=== PATIENT | female | born 1985 | race Caucasian/White ===

== ENCOUNTER 2016-12-05 00:09 | Emergency (ER) | payer OTHER ==
[~2016-12-05] VITALS: Ht 152.4 cm; Wt 65.0 kg
[~2016-12-05 00:09] MED LIST: ADDE30TA PO; CIPR-9 PO; DIFL150T PO
[2016-12-05 00:36] VITALS: BP 155/90; PULSE 92; RESP 18; TEMP 97.4; O2SAT 98
[2016-12-05 01:27] LABS: AUTOMATED NEUTROPHIL # 5.3 TH/MM3 (1.8-7.7); BASOPHIL # 0.3 TH/MM3 (0-0.2); BASOPHIL % 2.3 % (0.0-2.0); EOSINOPHIL # 0.1 TH/MM3 (0-0.4); EOSINOPHIL % 0.7 % (0.0-4.0); HEMATOCRIT 36.8 % (35.0-46.0); LYMPH % 52.3 % (9.0-44.0); LYMPHOCYTE # 6.9 TH/MM3 (1.0-4.8); MEAN CELL VOLUME 86.1 FL (80.0-100.0); MEAN CORPUSCULAR HEMOGLOBIN 29.1 PG (27.0-34.0); MEAN CORPUSCULAR HGB CONC 33.9 % (32.0-36.0); MONO % 4.6 % (0.0-8.0); NEUT % 40.1 % (16.0-70.0); PLATELET COUNT 374 TH/MM3 (150-450); RED BLOOD COUNT 4.27 MIL/MM3 (4.00-5.30); RED CELL DISTRIBUTION WIDTH 15.1 % (11.6-17.2); WHITE BLOOD COUNT 13.1 TH/MM3 (4.0-11.0)
[2016-12-05 01:30] LABS: HEMO FLAGS AUTO DIFF
[2016-12-05 01:46] LABS: AMPHETAMINE, URINE NEG (NEG); BARBITURATES, URINE NEG (NEG); COCAINE, URINE NEG (NEG)
[2016-12-05 01:55] LABS: ACETAMINOPHEN LESS THAN 2.0 MCG/ML (10.0-30.0); ALT (GPT) 31 U/L (10-53); ANION GAP 10 MEQ/L (5-15); AST (GOT) 24 U/L (15-37); BICARBONATE 21.6 MEQ/L (21.0-32.0); BLOOD UREA NITROGEN 10 MG/DL (7-18); CHLORIDE 108 MEQ/L (98-107); GLOMERULAR FILTRATION RATE 103 ML/MIN (>89); POTASSIUM 3.3 MEQ/L (3.5-5.1); SODIUM (NA) 140 MEQ/L (136-145)
[2016-12-05 01:57] LABS: ALKALINE PHOSPHATASE 106 U/L (45-117); TOTAL BILIRUBIN ADULT 0.1 MG/DL (0.2-1.0)
[2016-12-05 02:22] LABS: METAMYELOCYTES 1 % (0-1); NEUTROPHIL # MANUAL DIFF 5.5 TH/MM3 (1.8-7.7); PLATELET ESTIMATE SMEAR NORMAL (NORMAL); PLATELET MORPHOLOGY NORMAL (NORMAL); POLYS (SEG NEUTROPHILS) 41 % (16-70); SCAN/DIFF FINAL DIFF MANUAL; WBC DIFF SAMPLE 100
[2016-12-05] MEDS ORDERED: ACETAMINOPHEN 325 MG TAB PO ONE (04:45)
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
[2016-12-05 07:52] VITALS: BP 123/75; PULSE 99; RESP 16; O2SAT 97
[2016-12-05 07:56] VITALS: RESP 16
[2016-12-05] MEDS ORDERED: IBUPROFEN 800 MG TAB PO ONE (08:00)
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
[2016-12-05] MEDS ORDERED: NICOTINE 21 MG/24 HR PATCH TD ONE (11:45)
[2016-12-05 12:27] VITALS: BP 136/92
[2016-12-16] MEDS ORDERED: CIPR0.3S LEFT EAR (13:16)
[2016-12-16] MEDS ORDERED: PRED50 PO (13:28)
[2017-01-20] MEDS ORDERED: VORT1TAB PO (11:22)
[2017-01-20] MEDS ORDERED: LISD70 PO (11:22)
[2017-01-20] MEDS ORDERED: CYCL1TAB29 PO (11:46)
[2017-01-20] MEDS ORDERED: PRED20 PO (11:46)
[2017-04-06] MEDS ORDERED: ADDE30TA PO (15:44)
[2017-04-06] MEDS ORDERED: ETHI1TAB3 PO (15:44)
[2017-04-06] MEDS ORDERED: PRED20 PO (15:48)
[2017-04-06] MEDS ORDERED: CYCL7.5T33 PO (15:49)
[2017-04-06] MEDS ORDERED: NEBUKIT5 (15:50)
[2017-04-06] MEDS ORDERED: IPRASOL INH (15:50)
[2017-04-11] MEDS ORDERED: NEBUKIT5 (11:33)
[2017-04-12] MEDS ORDERED: NEBULIZER1 MI1 (09:43)
== END 2016-12-05 12:45 | disposition home or self-care (01) ==
LOC: NEPA 00:09
DX: F10.14 Alcohol abuse with alcohol-induced mood disorder (principal); Y90.6 Blood alcohol level of 120-199 mg/100 ml
CPT/HCPCS: 80053; 80307; 80320; 80329; 84703; 85007; 85027; 99284; G0480

== ENCOUNTER 2018-09-19 05:25 | Inpatient (IN) ==
[2018-09-19] MEDS ORDERED: ceFAZolin 2 GM Premix Inj 2 GM/50 ML PIGGYBACK IV.SIG PRN (06:24)
[2018-09-19 06:25] LABS: Baso # (Auto) 0.1 th/mm3 (0.0-0.2); Baso % (Auto) 0.4 % (0.0-2.0); Eos # (Auto) 0.1 th/mm3 (0.0-0.4); Eos % (Auto) 0.5 % (0.0-4.0); Hematocrit 33.4 % (35.0-46.0); Hemoglobin 11.5 gm/dL (11.6-15.3); Lymph # (Auto) 3.7 th/mm3 (1.0-4.8); Lymph % (Auto) 23.4 % (9.0-44.0); Mean Corpuscular HGB Conc 34.4 % (32.0-36.0); Mean Corpuscular Hemoglobin 30.4 pg (27.0-34.0); Mean Corpuscular Volume 88.5 fL (80.0-100.0); Mean Platelet Volume 8.6 fL (7.0-11.0); Mono # (Auto) 0.7 th/mm3 (0.0-0.9); Mono % (Auto) 4.8 % (0.0-8.0); Neut # (Auto) 11.2 th/mm3 (1.8-7.7); Neut % (Auto) 70.9 % (16.0-70.0); Platelet Count 264 th/mm3 (150-450); Red Blood Count 3.78 mil/mm3 (4.00-5.30); Red Cell Distribution Width 13.5 % (11.6-17.2); White Blood Count 15.8 th/mm3 (4.0-11.0)
[2018-09-19] MEDS ORDERED: Citric Acid/Sodium Citrate Liq 30 ML UDC PO SCH (06:30)
--- NOTE | 2018-09-19 06:56 | P.HPOB ---
History of Present Illness Service: obstetrics Primary Care Physician: No Primary Care Physician Chief Complaint: scheduled repeat History of Present Illness: 32 yo with EDC 09/26/18 by LMP c/w 7 wk sono, admit for scheduled repeat due to hx of x 2. Pt declines tubal at time of . Aware of risks of repetitive surgery including risk of bleeding, hemorrhage, need for transfusion and possibility of hysterectomy. Smoker. Has hx of ADHD, was on adderall until + test around 5 weeks. Today pt c/ o mild cramping, no regular contractions, no LOF or VB. Endorses good FM. Pain 2/10 in pelvis, pressure. Female . Weeks Gestation:: 39 Para: 2 : 3 Last menstrual period: 02/10/18 Total # of Miscarriage(s): 0 Total # of Abortions (Spontaneous & Elective): 0 - Inpatient Certification I certify that the inpatient services were ordered in accordance with Medicare regulations governing the order. This includes certification that hospital inpatient services are reasonable and necessary and in the case of services not specified as inpatient-only under 42 CFR 419.22(n), that they are appropriately provided as inpatient services in accordance to with the 2-midnight benchmark under 43 CFR 412.3(e) Estimated Total Length of Stay (Days): 4 Plans for Post Hospital Care: Home Review of Systems All other systems reviewed negative except as stated in HPI PMFSH - History History Provided By: Patient - Medical History Medical History: Medical History (Last Updated 09/19/18 @ 06:52 by Tiffanie Beatty MD) History of delivery, currently delivery delivered - Surgical History Surgical History: Surgical History (Last Updated 09/19/18 @ 06:52 by Tiffanie Beatty MD) History of appendectomy - Family History Family History: Family History (Last Updated 09/19/18 @ 06:53 by Tiffanie Beatty MD) Other No significant family history - Social History I have reviewed the patient's Social History: Yes - Tobacco History Second Hand Smoke Exposure: Yes Tobacco Use In Past 30 Days: Yes Smoking Status: Current every day smoker Tobacco Type: Cigarettes Packs Per Day: 1 - Alcohol History How Often Do You Have a Drink Containing Alcohol: Never - Substance Use History Substance History: No History of Abuse - Travel History History of Recent Travel: No Recent Travel in the [place] Within the Last 8 Weeks: No Recent Travel Out of the Country Within the Last 8 Weeks: No - Immunization History Immunizations: Tdap 08/21/18, Flu shot 08/15/18 Tetanus Immunization: <5 Years Tetanus Immunization Year if Known: 2017 Hx Influenza Vaccine This Season: Yes Medications and Allergies Active Medications: Active Medications Citric Acid/Sodium Citrate (Sodium Citrate/Citric Acid Liq) 30 ml PO DIRECTOR OF VOLUNTEER SERVICES [facility] Stop: 09/23/18 06:29 Cefazolin Sodium/Dextrose (Ancef 2 Gm Premix Inj) 2 gm in 50 mls @ 100 mls/hr IV.SIG DIRECTOR OF VOLUNTEER SERVICES PRN PRN Reason: BEGIN WHEN TRANSPORTING TO OR Stop: 09/23/18 06:23 Lactated Ringer's (Lr 1000 Ml Inj) 1,000 mls @ 2,000 mls/hr IV.SIG .Q30M ONE Stop: 09/19/18 06:53 Last Admin: 09/19/18 06:37 Dose: 2,000 mls/hr Lactated Ringer's (Lr 1000 Ml Inj) 1,000 mls @ 150 mls/hr IV.CONT .Q6H40M [facility] Allergies Allergy/AdvReac Type Severity Reaction Status Date / Time Sulfa (Sulfonamide Allergy Unknown unknown Verified 09/17/18 10:59 Antibiotics) Home Medications Medication Instructions Recorded Confirmed Type PNV #[id number] 1 tab PO DAILY 04/28/18 09/19/18 History nicotine 1 patch TRANSDERMAL DAILY 04/28/18 09/19/18 History Exam Vital signs: Vital Signs 09/19/18 05:53 Temperature 97.8 F Pulse Rate 124 H Respiratory Rate 18 Blood Pressure 112/77 Intake & Output 09/18/18 09/18/18 09/19/18 06:59 18:59 06:59 Weight 81 kg Other: Weight On Admission 81 kg - Constitutional mild distress - Routine HEENT Exam Head: Present: normocephalic, atraumatic Eye: Present: EOMI ENT: Present: mucous membranes moist - Routine Neck Exam Present: supple, full ROM - Routine Chest/Breast/Axilla Exam Chest wall: Absent: tenderness, mass - Routine Respiratory Exam Present: CTA bilaterally. Absent: accessory muscle use - Routine Cardiovascular Exam Present: RRR. Absent: bradycardia - Routine Abdominal Exam Absent: tenderness, rebound Comments: gravid c/w dates - Routine Extremities Exam Absent: cyanosis, clubbing - Routine Skin Exam Present: intact. Absent: cyanosis - Routine Neurological Exam Present: alert, oriented X3 Results - Labs CBC & Chem 7: 09/19/18 06:00 Labs: Laboratory Results - last 24 hr 09/19/18 06:00 WBC 15.8 H RBC 3.78 L Hgb 11.5 L Hct 33.4 L MCV 88.5 MCH 30.4 MCHC 34.4 RDW 13.5 Plt Count 264 MPV 8.6 Neut % (Auto) 70.9 H Lymph % (Auto) 23.4 [place] % (Auto) 4.8 Eos % (Auto) 0.5 Baso % (Auto) 0.4 Neut # (Auto) 11.2 H Lymph # (Auto) 3.7 [place] # (Auto) 0.7 Eos # (Auto) 0.1 Baso # (Auto) 0.1 WBC Differential . Differential Comment Auto diff final Group B Strep: Positive Caprini VTE Risk Assessment Caprini VTE Risk Assessment: No/Low Risk (score <= 1) VTE Pharmacological Exception Reason: Epidural catheter Caprini Risk Assessment Model: Point Value = 1 Point Value = 2 Point Value = 3 Point Value = 5 Age 41-60 Minor surgery BMI > 25 kg/m2 Swollen legs Varicose veins or History of unexplained or recurrent spontaneous Oral contraceptives or hormone replacement Sepsis (< 1 month) Serious lung disease, including pneumonia (< 1 month) Abnormal pulmonary function Acute myocardial infarction Congestive heart failure (< 1 month) History of inflammatory bowel disease Medical patient at bed rest Age 61-74 Arthroscopic surgery Major open surgery (> 45 min) Laparoscopic surgery (> 45 min) Malignancy Confined to bed (> 72 hours) Immobilizing plaster cast Central venous access Age >= 75 History of VTE Family history of VTE Factor V Leiden Prothrombin [id number] Lupus anticoagulant Anticardiolipin antibodies Elevated serum homocysteine Heparin-induced thrombocytopenia Other congenital or acquired thrombophilia Stroke (< 1 month) Elective arthroplasty Hip, pelvis, or leg fracture Acute spinal cord injury (< 1 month) Prophylaxis Regimen: Total Risk Factor Score Risk Level Prophylaxis Regimen 0-1 Low Early ambulation 2 Moderate Order ONE of the following: *Sequential Compression Device (SCD) *Heparin 5000 units SQ BID 3-4 Higher Order ONE of the following medications: *Heparin 5000 units SQ TID *Enoxaparin/Lovenox 40 mg SQ daily (WT < 150 kg, CrCl > 30 mL/min) *Enoxaparin/Lovenox 30 mg SQ daily (WT < 150 kg, CrCl > 10-29 mL/min) *Enoxaparin/Lovenox 30 mg SQ BID (WT < 150 kg, CrCl > 30 mL/min) AND/OR *Sequential Compression Device (SCD) 5 or more Highest Order ONE of the following medications: *Heparin 5000 units SQ TID (Preferred with Epidurals) *Enoxaparin/Lovenox 40 mg SQ daily (WT < 150 kg, CrCl > 30 mL/min) *Enoxaparin/Lovenox 30 mg SQ daily (WT < 150 kg, CrCl > 10-29 mL/min) *Enoxaparin/Lovenox 30 mg SQ BID (WT < 150 kg, CrCl > 30 mL/min) AND *Sequential Compression Device (SCD) Assessment and Plan - Diagnosis (1) 39 weeks gestation of Code(s): Z3A.39 - 39 weeks gestation of Status: Acute (2) Previous section Code(s): Z98.891 - History of uterine scar from previous surgery Status: Chronic - Plan 32 yo with EDC 09/26/18 presents for scheduled repeat due to hx of x 2. 1) hx of x 2, for repeat: r/b/a of procedure d/w pt, AQA, consents signed 2) GBS +: aware 3) tobacco use: aware, encouraged cessation throughout , pt not motivated 4) family planning: pt declined option of tubal at time of 5) abnl 1h GTT - unable to tolerate 3h, tested BS 4x/day x 2 weeks and all wnl; not gestational diabetic 6) status: female, vertex, EFW >8# Discharge Plannin-3d PP
[2018-09-19] MEDS ORDERED: Morphine Sulfate PF Inj 5 MG/10 ML Ampul ONE (07:14)
[2018-09-19] MEDS ORDERED: Naloxone Inj 0.4 MG/ML Vial IV.PUSH PRN (07:25)
[2018-09-19 07:51] LABS: Bacteria,Urine Occasional /hpf; Bilirubin,Urine Negative (Negative); Clarity,Urine Clear (Clear); Color,Urine Straw (Yellw/Straw); Glucose,Urine (UA) Negative (Negative); Leukocyte Esterase,Urine Trace (Negative); Mucus,Urine Few /lpf (Occasional); Nitrite,Urine Negative (Negative); Specific Gravity,Urine 1.008 (1.002-1.035); Squamous Epithelial Cell,Urine 1 /hpf (0-5)
[2018-09-19 07:52] LABS: Amphetamine Screen,Urine Neg (Neg); Barbiturate Screen,Urine Neg (Neg); Cannabinoid Screen,Urine Neg (Neg); Cocaine Screen,Urine Neg (Neg)
[2018-09-19 07:54] LABS: Opiate Screen,Urine Neg (Neg)
[2018-09-19] MEDS ORDERED: Oxytocin 30 Units/500ml Premix 30 UNITS/500 ML BAG IV.SIG ONE (08:19)
[2018-09-19] MEDS ORDERED: Ketorolac Inj 30 MG/ML (IVP) Vial IM PRN (08:19)
[2018-09-19] MEDS ORDERED: Senna/Docusate Sodium 8.6/50 MG Tablet PO PRN (08:19)
[2018-09-19] MEDS ORDERED: Simethicone 80 MG Chew Tablet PO PRN (08:19)
[2018-09-19] MEDS ORDERED: Acetaminophen 325 MG Tablet PO PRN (08:19)
--- NOTE | 2018-09-19 08:24 | P.OBDELI ---
Procedure Note - Pre Op Diagnosis (1) Previous section - Post Op Diagnosis (1) 39 weeks gestation of Performed by: Tiffanie Beatty MD Procedure: Repeat Low Transverse Section Indication for Delivery: Desired elective repeat (history of x 2) Informed Consent Obtained: For anesthesia, For procedure Confirmed Correct: Patient, Procedure, Site, Time-out taken Anesthesia: Spinal Medication Prior to Procedure: As documented in eMAR Monitoring During Procedure: Blood pressure monitoring, buhr dresser, Pulse oximetry Urinary Catheter: Inserted using sterile technique, To dependent drainage, ml urine output (350) Sterile Preparation: Duraprep, In usual fashion, With drapes to expose affected area Position: Supine with wedge to right side - Operative Features Skin Incision: Pfannenstiel Uterine Incision: Low transverse w/knife / scissors Membranes Ruptured: Artificially, Amount of liquid (moderate), Appearance of fluid (clear) Presentation: Occiput anterior, Vertex Status of : Viable, Cord blood, Nursery present Placenta Delivered: Intact Medications: Antibiotics (ancef 2g IV) Estimated blood loss (mL): 700 Procedure Tolerated: Well Maternal Condition: Stable Baby Condition: Stable - Infant: Female Female A Infant Delivery Date: 09/19/18 Infant Delivery Time: 07:50 Weight: 2.778 kg Delivery of Infant: Uneventful score (1 min): 8 score (5 min): 9
[2018-09-19] MEDS ORDERED: Oxytocin 30 Units/500ml Premix 30 UNITS/500 ML BAG ONE (09:13)
--- NOTE | 2018-09-19 10:21 | MP ---
cc: Tiffanie Beatty MD DATE OF OPERATION: 09/19/2018 PREOPERATIVE DIAGNOSES: 1. Delgado intrauterine at 39 weeks. 2. History of x2, for scheduled repeat. POSTOPERATIVE DIAGNOSES: 1. Delgado intrauterine at 39 weeks. 2. History of x2, status post scheduled repeat. 3. Postoperative day #0. INDICATIONS: Halle Burciaga is a 32-year-old, 3, now para 3-0-0-3, who was seen and evaluated in the office for care, and had history of delivery x2. She desired repeat at term, and declined option of tubal ligation. She was scheduled for repeat at 39 weeks. SURGEON: Tiffanie Beatty MD ANESTHESIA: Spinal. PROCEDURE PERFORMED: Repeat low transverse delivery with scar revision. ESTIMATED BLOOD LOSS: 700 mL. INTRAVENOUS FLUID REPLACEMENT: 1400 mL URINE OUTPUT: 350 mL of clear urine draining in the Navarro bag at the end of the procedure. PROPHYLAXIS: Ancef 2 grams IV was given preoperatively. SCDs were on and functioning throughout the entire case. COMPLICATIONS: None. COUNTS: The sponge, lap, instrument, and needle counts were correct x2 at the conclusion of the procedure. SPECIMEN: None. INTRAOPERATIVE FINDINGS: A vigorous viable female infant weighing 6 pounds 2 ounces. Amniotic fluid was clear. Uterus with minimal scar tissue and normal-appearing bilateral fallopian tubes and ovaries. PROCEDURE IN DETAIL: After reviewing the informed consent, the patient was taken to the operating suite, where timeout was performed to identify the patient, planned procedure, any known allergies to drugs or drug products. The patient was then placed sitting up on the exam table, and spinal anesthesia was administered without difficulty, and found to be adequate. She was then laid in dorsal supine position with a bump under her right side, and abdomen and peritoneum were prepped and draped in normal sterile fashion. Navarro catheter was placed using sterile technique. Attention was turned abdominally. The prior 2 scars from previous 2 Pfannenstiel incisions were excised using scalpel. The incision was then carried down to the underlying layer of fascia with the Bovie. The fascia was incised in the midline, and the incision was extended laterally with sharp dissection using Kelly scissors. Superior and inferior aspects of the fascial incision was elevated with Juan Antonio clamps, and rectus muscles were dissected off sharply with the scalpel and Kelly scissors. Hemostat was used to separate the rectus muscles in the midline, and using hemostats and Metzenbaum, the peritoneum was entered sharply. The incision was extended with good visualization of intra-abdominal contents. A bladder flap was made using standard technique with Metzenbaums and pickups. The bladder blade was then replaced. A low transverse uterine incision was made with a scalpel. Incision was extended bluntly. The amniotic sac was ruptured with clear fluid noted. 's head was grasped and elevated out of the incision. Using gentle fundal pressure, the rest of the 's body readily delivered. was immediately crying upon delivery. Delayed cord clamping of 45 seconds was performed. Nursery staff was present, and the was handed off to the waiting nursery staff after cord was doubly clamped and cut. Cord blood sample was taken. The placenta was delivered spontaneous with gentle cord traction and fundal massage. Uterus was exteriorized, cleared of all clots and debris with sterile moist lap sponges. The uterine incision was repaired in a double-layer, first in a running locked layer with #1 chromic, then in an imbricating layer. Irrigation with suction was performed in the posterior cul-de-sac. Uterus was then returned to the abdomen. Additional irrigation with suction was performed. A layer of Interceed was placed over the repaired hysterotomy. Excellent hemostasis was noted. Peritoneum was reapproximated with 2-0 chromic in a running fashion. The fascia was reapproximated with #1 Vicryl in a running locked fashion. The subcutaneous tissue was irrigated copiously with warm sterile saline, and excellent hemostasis was ensured with the Bovie. A series of interrupted sutures using 2-0 chromic was used to close the subcutaneous space. Skin was closed in a subcuticular fashion with 3-0 Monocryl. The skin was cleaned and dried. Steri-Strips were placed, as was a standard dressing. The procedure concluded at this point. The patient tolerated the procedure well without complication. DISPOSITION: Estimated length of stay: 2-3 postoperative days. is nursery status. MD RUBEN Aguilar/michelle , 08:43 AM , 08:50 AM LUIZ
[2018-09-19] MEDS ORDERED: Oxytocin 30 Units/500ml Premix 30 UNITS/500 ML BAG IV.SIG PRN (13:19)
[2018-09-19] MEDS ORDERED: Zolpidem Tartrate 5 MG Tablet PO PRN (21:00)
[2018-09-20 05:55] LABS: Baso # (Auto) 0.1 th/mm3 (0.0-0.2); Baso % (Auto) 0.4 % (0.0-2.0); Eos # (Auto) 0.1 th/mm3 (0.0-0.4); Eos % (Auto) 0.5 % (0.0-4.0); Hematocrit 33.5 % (35.0-46.0); Hemoglobin 11.4 gm/dL (11.6-15.3); Lymph # (Auto) 4.3 th/mm3 (1.0-4.8); Lymph % (Auto) 23.2 % (9.0-44.0); Mean Corpuscular HGB Conc 34.1 % (32.0-36.0); Mean Corpuscular Volume 88.1 fL (80.0-100.0); Mean Platelet Volume 8.8 fL (7.0-11.0); Mono # (Auto) 1.2 th/mm3 (0.0-0.9); Mono % (Auto) 6.4 % (0.0-8.0); Neut # (Auto) 12.9 th/mm3 (1.8-7.7); Neut % (Auto) 69.5 % (16.0-70.0); Platelet Count 290 th/mm3 (150-450); Red Cell Distribution Width 13.9 % (11.6-17.2); White Blood Count 18.6 th/mm3 (4.0-11.0)
--- NOTE | 2018-09-20 11:44 | P.PNOB ---
Subjective Post op day: 1 Interval history: POD#1, s/p RCD; Patient is struggling with smoking restriction,is using patch with modest relief. anticipate discharge for tomorrow POD#2 Objective Vital Signs/I&O: Vital Signs 09/19/18 16:00 09/19/18 20:00 09/20/18 00:00 Temperature 97.4 F L 98.6 F 98.3 F Pulse Rate 88 85 62 Respiratory Rate 16 18 18 Blood Pressure 111/73 110/79 119/75 09/20/18 04:00 09/20/18 08:00 Temperature 98.3 F 97.1 F L Pulse Rate 73 89 Respiratory Rate 18 18 Blood Pressure 106/79 103/69 Result Diagrams: 09/20/18 05:07 Objective Remarks: GENERAL: Well-nourished, well-developed patient. CARDIOVASCULAR: Regular rate and rhythm without murmurs, gallops, or rubs. RESPIRATORY: Breath sounds equal bilaterally. No accessory muscle use. ABDOMEN/GI: Abdomen soft, non-tender, bowel sounds present. Incision: Clean, dry and intact. Fundus: Firm, non-tender at umbilicus. GENITOURINARY: Light to moderate bleeding. EXTREMITIES: No cyanosis or edema, non-tender, without signs of DVT. Medications and IVs: Active Medications Acetaminophen (Tylenol) 650 mg PO Q6H PRN PRN Reason: PAIN SCALE 1 TO 2 Diphtheria/Pertussis/Tetanus Vacc (Boostrix Vaccine Inj) 0.5 ml IM .ONCE ONE Stop: 09/20/18 16:01 Oxytocin (Pitocin 30 Units/Ns 500 Ml Premix) 30 units in 500 mls @ 100 mls/hr IV.SIG UNSCH PRN PRN Reason: Heavy bleeding Ibuprofen (Motrin) 800 mg PO Q8H PRN PRN Reason: cramping Last Admin: 09/20/18 10:15 Dose: 800 mg Ketorolac Tromethamine (Toradol Inj) 30 mg IM Q6H PRN PRN Reason: SEE LABEL COMMENTS Measles/Mumps/Rubella Vaccine Live (M-M-R Ii Vaccine Inj) 0.5 ml SQ .ONCE ONE Stop: 09/20/18 16:01 Nicotine (Habitrol 21 Mg Patch.24 Hr) 1 patch T-DERMAL DAILY ADRIA Last Admin: 09/20/18 08:18 Dose: 1 patch Ondansetron HCl (Zofran Inj) 4 mg IV.PUSH Q6H PRN PRN Reason: NAUSEA OR VOMITING Oxycodone/Acetaminophen (Percocet 5/325 Mg) 1 tab PO Q4H PRN PRN Reason: PAIN SCALE 3 TO 5 Last Admin: 09/20/18 04:47 Dose: 1 tab Oxycodone/Acetaminophen (Percocet 5/325 Mg) 2 tab PO Q4H PRN PRN Reason: PAIN SCALE 6 TO 10 Last Admin: 09/20/18 10:15 Dose: 2 tab Patch Removal (Remove Old Patch) 1 each T-DERMAL DAILY ADRIA Last Admin: 09/19/18 10:55 Dose: Not Given Senna/Docusate Sodium (Gayle-Colace) 2 tab PO Q12H PRN PRN Reason: CONSTIPATION Last Admin: 09/19/18 21:18 Dose: 2 tab Simethicone (Mylicon Chew) 80 mg PO QID PRN PRN Reason: FLATULENCE Last Admin: 09/20/18 05:03 Dose: 80 mg Sodium Chloride (Ns Flush) 2 ml IV.FLUSH BID ADRIA Last Admin: 09/20/18 00:21 Dose: 2 ml Sodium Chloride (Ns Flush) 2 ml IV.FLUSH PRN PRN PRN Reason: FLUSH AFTER USING IV ACCESS Zolpidem Tartrate (Ambien) 5 mg PO HS PRN PRN Reason: INSOMNIA Last Admin: 09/19/18 22:14 Dose: 5 mg Assessment and Plan - Diagnosis (1) 39 weeks gestation of Code(s): Z3A.39 - 39 weeks gestation of Status: Acute (2) Previous section Code(s): Z98.891 - History of uterine scar from previous surgery Status: Chronic - Plan 32 yo with EDC 09/26/18 presents for scheduled repeat due to hx of x 2. 1) hx of x 2, for repeat: r/b/a of procedure d/w pt, AQA, consents signed 2) GBS +: aware 3) tobacco use: aware, encouraged cessation throughout , pt not motivated 4) family planning: pt declined option of tubal at time of 5) abnl 1h GTT - unable to tolerate 3h, tested BS 4x/day x 2 weeks and all wnl; not gestational diabetic 6) status: female, vertex, EFW >8# // POD#1 Patient encouraged to use patch,she is aware she cannot leave unit to smoke and will comply. Plan discharge tomorrow; clinically is doing well Discharge Plannin-3d PP
[2018-09-20] MEDS ORDERED: Diphtheria/Tetanus/Pertussis Vaccine Inj 0.5 ML Syringe IM ONE (16:00)
[2018-09-20] MEDS ORDERED: Measles/Mumps/Rubella Vaccine Inj 0.5 ML Vial SQ ONE (16:00)
--- NOTE | 2018-09-21 07:56 | P.PNOB ---
Subjective Post op day: 2 Interval history: Doing well, ready for discharge home, pain controlled, vaginal bleeding less than menses, tolerating a diet, voiding spontaneously. Ambulating without issues. Objective Vital Signs/I&O: Vital Signs 09/20/18 08:00 09/20/18 11:00 09/20/18 20:00 Temperature 97.1 F L 97.8 F 97.9 F Pulse Rate 89 102 H 87 Respiratory Rate 18 18 18 Blood Pressure 103/69 99/69 L 111/75 Result Diagrams: 09/20/18 05:07 Objective Remarks: GENERAL: Well-nourished, well-developed patient. CARDIOVASCULAR: Regular rate and rhythm without murmurs, gallops, or rubs. RESPIRATORY: Breath sounds equal bilaterally. No accessory muscle use. ABDOMEN/GI: Abdomen soft, non-tender, bowel sounds present. Incision: Clean, dry and intact. Fundus: Firm, non-tender at umbilicus. GENITOURINARY: Light to moderate bleeding. EXTREMITIES: No cyanosis or edema, non-tender, without signs of DVT. Medications and IVs: Active Medications Acetaminophen (Tylenol) 650 mg PO Q6H PRN PRN Reason: PAIN SCALE 1 TO 2 Oxytocin (Pitocin 30 Units/Ns 500 Ml Premix) 30 units in 500 mls @ 100 mls/hr IV.SIG UNSCH PRN PRN Reason: Heavy bleeding Ibuprofen (Motrin) 800 mg PO Q8H PRN PRN Reason: cramping Last Admin: 09/21/18 02:37 Dose: 800 mg Ketorolac Tromethamine (Toradol Inj) 30 mg IM Q6H PRN PRN Reason: SEE LABEL COMMENTS Nicotine (Habitrol 21 Mg Patch.24 Hr) 1 patch T-DERMAL DAILY ADRIA Last Admin: 09/20/18 08:18 Dose: 1 patch Ondansetron HCl (Zofran Inj) 4 mg IV.PUSH Q6H PRN PRN Reason: NAUSEA OR VOMITING Oxycodone/Acetaminophen (Percocet 5/325 Mg) 1 tab PO Q4H PRN PRN Reason: PAIN SCALE 3 TO 5 Last Admin: 09/20/18 04:47 Dose: 1 tab Oxycodone/Acetaminophen (Percocet 5/325 Mg) 2 tab PO Q4H PRN PRN Reason: PAIN SCALE 6 TO 10 Last Admin: 09/21/18 06:26 Dose: 2 tab Patch Removal (Remove Old Patch) 1 each T-DERMAL DAILY ADRIA Last Admin: 09/20/18 14:23 Dose: 1 each Senna/Docusate Sodium (Gayle-Colace) 2 tab PO Q12H PRN PRN Reason: CONSTIPATION Last Admin: 09/19/18 21:18 Dose: 2 tab Simethicone (Mylicon Chew) 80 mg PO QID PRN PRN Reason: FLATULENCE Last Admin: 09/20/18 05:03 Dose: 80 mg Sodium Chloride (Ns Flush) 2 ml IV.FLUSH BID ADRIA Last Admin: 09/20/18 20:42 Dose: Not Given Sodium Chloride (Ns Flush) 2 ml IV.FLUSH PRN PRN PRN Reason: FLUSH AFTER USING IV ACCESS Zolpidem Tartrate (Ambien) 5 mg PO HS PRN PRN Reason: INSOMNIA Last Admin: 09/19/18 22:14 Dose: 5 mg Assessment and Plan - Diagnosis (1) 39 weeks gestation of Code(s): Z3A.39 - 39 weeks gestation of Status: Acute (2) Previous section Code(s): Z98.891 - History of uterine scar from previous surgery Status: Chronic - Plan 32-year-old status post scheduled repeat low transverse at 39 weeks. 1. Postoperative day #2: Mean milestones, discharge home today, discussed expectations, precautions and follow-up. Queried PDMP and reviewed report. -Female .
[2018-09-21 08:14] VITALS: BP 102/70; PULSE 81; RESP 20; TEMP 97.8
== END 2018-09-21 10:29 | disposition home or self-care (01) ==
LOC: H2E 05:25 → H1EA 09:54
PROVIDERS: ADMIT Obstetrics & Gynecology; ATTEND Obstetrics & Gynecology